=== PATIENT | female | born 1995 | race Caucasian/White ===

== ENCOUNTER 2019-03-13 06:36 | Day surgery (SDC) | payer BC ==
[~2019-03-13] VITALS: Ht 165.1 cm; Wt 117.4 kg
[~2019-03-13 06:36] MED LIST: DEPO SHOT
[2019-03-13 07:24] VITALS: Ht 165.1 cm; Wt 117.4 kg
[2019-03-13 07:44] VITALS: BP 137/88; PULSE 93; RESP 23
--- NOTE | 2019-03-13 07:50 | PREAC ---
Date/Time of Note Date/Time of Note DATE: 03/13/19 TIME: 07:49 Anesthesia Eval and Record Evaluation Time Pre-Procedure Interview DATE: 03/13/19 TIME: 07:49 Age 23 Sex female NPO: 8 hrs Preoperative diagnosis Rectal Bleeding Planned procedure Colonoscopy Past Medical History Past Medical History: Includes GI: Obesity Psych: Anxiety Surgery & Anesthesia Issues No known issue Meds Anticoagulation: No Beta Coco within 24 hr: No Reason Beta Coco not given: Pt. not on B-Coco Reported Medications [Depo Shot] No Conflict Check 03/13/19 Meds reviewed: Yes Allergies Coded Allergies: No Known Allergy (Unverified , 03/13/19) Allergies Reviewed: Yes Labs/Studies Labs Reviewed: Reviewed by anesthesiologist test: N/A (on contraceptives) Studies: ECG (n/a), CXR (n/a) Pre-procedure Exam Last vitals Vital Signs Date Temp Pulse Resp B/P (MAP) Pulse Ox O2 O2 Flow FiO2 Time Delivery Rate 03/13/19 98.5 93 23 137/88 97 Room Air 07:44 (104) Airway: Adequate mouth opening, Adequate thyromental dist Mallampati: Mallampati II Teeth: Normal Lung: Normal Heart: Normal ASA Physical Status ASA physical status: 2 Emergency: None Planned Anesthetic General/MAC: MAC Planned Pain Management Parenteral pain med Pre-operative Attestations Prior to commencing anesthesia and surgery, the patient was re-evaluated, there was verification of: *The patient's identity *The results of appropriate recent lab work and preoperative vital signs *The above evaluation not changing prior to induction *Anesthetic plan, risk benefits, alternative and complications discussed with pa tient/family; questions answered; patient/family understands, accepts and wishes to proceed. CALEB IGLESIAS MD Mar 13, 2019 07:50
[2019-03-13] MEDS ORDERED: PROPOFOL 60 ML ONE (08:47)
--- NOTE | 2019-03-13 08:49 | PAC ---
Date/Time of Note Date/Time of Note DATE: 03/13/19 TIME: 08:49 Post-Anesthesia Notes Post-Anesthesia Note Last documented vital signs Vital Signs Date Temp Pulse Resp B/P (MAP) Pulse Ox O2 O2 Flow FiO2 Time Delivery Rate 03/13/19 98.5 93 23 137/88 97 Room Air 08:44 (104) Activity: WNL Respiratory function: WNL Cardiovascular function: WNL Mental status: Baseline Pain reasonably controlled: Yes Hydration appropriate: Yes Nausea/Vomiting absent: Yes CALEB IGLESIAS MD Mar 13, 2019 08:49
[2019-03-13 09:13] VITALS: BP 112/58; PULSE 86; RESP 21
== END 2019-03-13 12:45 | disposition home or self-care (01) ==
LOC: GIL 06:36
PROVIDERS: ATTEND Internal Medicine Gastroenterology
DX: K64.8 Other hemorrhoids (principal)
CPT/HCPCS: 45378; Z7610